=== PATIENT | female | born 1945 | race Caucasian/White ===

== ENCOUNTER → 2017-09-23 10:51 | Outpatient (CLI) | payer MEDICARE, SELFPAY ==
--- NOTE | 2017-09-23 | DI.RAD.S_ITS ---
PROCEDURE: XR CHEST 2V INDICATIONS: ACUTE BRONCHITIS, UNSPECIFIED TECHNIQUE: 2 views of the chest were acquired. COMPARISON: Merged With [facility], , CHEST 1 VIEW, 07/23/2015, 14:55. FINDINGS: Surgical changes and devices: Clips projecting in the right upper quadrant. Lungs and pleura: No pleural effusions or pneumothorax. Lungs are clear. Mediastinum: Mediastinal contours are normal. Heart size is normal. Bones and chest wall: No suspicious bony abnormalities. Soft tissues appear unremarkable. IMPRESSION: No acute disease. Dictated by: Fuentes Diaz M.D. on 09/23/2017 at 11:22 Approved by: Fuentes Diaz M.D. on 09/23/2017 at 11:23
== END ==
PROVIDERS: PCP Physician Assistant; Visit Provider Physician Assistant
DX: J20.9 Acute bronchitis, unspecified (principal)
CPT/HCPCS: 71046

== ENCOUNTER → 2018-05-10 14:52 | Outpatient (CLI) | payer MEDICARE, SELFPAY ==
--- NOTE | 2018-05-10 | DI.ECHO.S_ITS ---
[facility]---------+ [facility] +---------+ : : [address] : [place] : : : : [id number] : : : : Phone: [phone]+ Echocardiogram Report + + :Name: ADDI CISNEROS Study Date: 05/10/2018 Height: 65 in : :[facility] Weight: 250 lb : : Gender: Female BSA: 2.2 m2 : :: 1945 Age: 72 yrs BP: 158/68 mmHg: :Reason For Study: SOB : : Performed By: Yin Corrales : :Referring: MAREN ADLER : + + Interpretation Summary The ejection fraction is estimated to be 60-65%. There is mild aortic valve sclerosis. There is mild tricuspid regurgitation. The right ventricular systolic pressure is estimated to be at least 31 mmHg based on an estimated right atrial pressure of 3 mm Hg. Compared to the prior echo report on 2014, there is no significant change. Procedure: A two-dimensional transthoracic echocardiogram with color flow and Doppler was performed. The study quality was technically good. Comparison is made with the echocardiogram of 09-12-14. The patient was in normal sinus rhythm during the exam. Left Ventricle: The left ventricle is normal in size, wall thickness, and systolic function without any focal wall motion abnormalities. The ejection fraction is estimated to be 60-65%. Left ventricular wall motion is normal. Right Ventricle: The right ventricle grossly appears normal in size with probable normal systolic function. Atria: The left atrium is moderately dilated. Right atrial size is normal. The interatrial septum is intact with no evidence for an atrial septal defect. Mitral Valve: The mitral valve leaflets appear borderline thickened, but open well. There is no mitral regurgitation noted. Aortic Valve: The aortic valve is trileaflet. The aortic valve opens well. There is mild aortic valve sclerosis. No aortic regurgitation is present. Tricuspid Valve: The tricuspid valve leaflets are thin and pliable. There is mild tricuspid regurgitation. The right ventricular systolic pressure is estimated to be at least 31 mmHg based on an estimated right atrial pressure of 3 mm Hg. Pulmonic Valve: The pulmonic valve is normal in structure and function. There is no pulmonic valvular regurgitation. Great Vessels: The aortic root is normal size. The ascending aorta is at the upper limits of normal in size. The aortic arch is mildly enlarged. The IVC is of normal diameter and collapses greater than 50% with a sniff. This suggests a low right atrial pressure of 3 mm Hg. Pericardium/ Pleura There is no pericardial effusion. There is no pleural effusion. MMode/2D Measurements & Calculations LVIDd: 4.7 cm Ao root diam: 3.6 cm LVIDs: 3.1 cm Aortic Jxn: 2.7 cm FS: 35.1 % asc Aorta Diam: 3.5 cm EPSS: 0.80 cm Ao Arch Diam (Prox Trans): 3.4 cm IVSd: 0.93 cm LVPWd: 0.90 cm LV larson. diameter/BSA (cm/m^2): 2.2 LV sys. diameter/BSA (cm/m^2): 1.4 LA dimension: 4.3 cm RA long axis: 5.5 cm LA A2 area: 26.7 cm2 RA area: 21.6 cm2 LA A4 area: 28.0 cm2 RA vol: 72.9 ml LA length (vol): 6.4 cm RA : 33.5 ml/m2 LA vol: 99.0 ml IVC diam: 1.6 cm LA vol index: 45.5 ml/m2 RVDd major: 5.0 cm RVD1 (basal): 3.6 cm RVD2 (mid): 2.6 cm Doppler Measurements & Calculations Ao V2 max: 161.3 cm/sec MV E max jon: 123.5 cm/sec Ao V2 mean: 98.0 cm/sec MV A max jon: 133.2 cm/sec Ao max P.4 mmHg MV E/A: 0.93 Ao mean P.6 mmHg Med Peak E' Jon: 5.4 cm/sec Ao V2 VTI: 35.9 cm E/E' med: 23.0 Lat Peak E' Jon: 6.5 cm/sec E/E' lat: 18.9 E/e' average: 21.0 MV dec time: 0.21 sec MV P1/2t: 64.8 msec TR max jon: 264.0 cm/sec MV P1/2t max jon: 123.7 cm/sec TR max P.9 mmHg MVA(P1/2t): 3.4 cm2 PA V2 max: 94.5 cm/sec PA V2 mean: 62.3 cm/sec PA mean P.8 mmHg PA Accel Time: 0.13 sec Reading Physician:02:52 PM
== END ==
PROVIDERS: PCP Physician Assistant; Visit Provider Physician Assistant
DX: I08.2 Rheumatic disorders of both aortic and tricuspid valves (principal); R06.02 Shortness of breath; I10 Essential (primary) hypertension
CPT/HCPCS: 93306

== ENCOUNTER → 2019-12-27 16:13 | Outpatient (CLI) | payer MEDICARE, SELFPAY ==
--- NOTE | 2019-12-27 16:20 | DI.CT.S_ITS ---
PROCEDURE: CT HEAD/BRAIN WO CON INDICATIONS: ACUTE HEADACHE POST HEAD INJURY TECHNIQUE: Noncontrast 4.5 mm thick angled axial sections acquired from the foramen magnum to the vertex, with coronal and sagittal reformats. For radiation dose reduction, the following was used: automated exposure control, adjustment of mA and/or kV according to patient size. COMPARISON: [facility], CT, SINUS W/O CONTRAST, 04/29/2013, 8:20. FINDINGS: Image quality: Excellent. CSF spaces: Basal cisterns are patent. No extra-axial fluid collections. Ventricles are normal in size and shape. Small extra-axial intracranial lipomas noted along the falx (series 2 images 16, 17, 18, 20, 21). Brain: No midline shift. No intracranial masses or hemorrhage. Keyes-white matter interface is normal. Skull and face: Calvarium and visualized facial bones are intact, without suspicious lesions. Sinuses: Visualized sinuses and mastoids are clear. IMPRESSION: No acute intracranial process. Dictated by: Nayan Fajardo M.D. on 12/27/2019 at 16:42 Approved by: Nayan Fajardo M.D. on 12/27/2019 at 16:45
== END ==
PROVIDERS: PCP Physician Assistant; Referring Provider Physician Assistant; Visit Provider Physician Assistant
DX: G44.319 Acute post-traumatic headache, not intractable (principal)
CPT/HCPCS: 70450

== ENCOUNTER → 2020-01-09 14:43 | Outpatient (CLI) | payer MEDICARE, SELFPAY ==
[2020-01-11 08:19] LABS: COVID19 Sendout Not Detected (Not Detect)
== END ==
PROVIDERS: PCP Physician Assistant; Visit Provider Physician Assistant
DX: Z11.59 Encounter for screening for other viral diseases (principal)
CPT/HCPCS: 87635

== ENCOUNTER → 2020-01-12 08:52 | Outpatient (CLI) | payer MEDICARE, SELFPAY ==
--- NOTE | 2020-01-12 19:17 | DI.NM.S_ITS ---
DATE OF SERVICE: 01/12/2020 PROCEDURE PERFORMED: Exercise treadmill myocardial perfusion imaging study with gating to assess ejection fraction and regional wall motion. Performed as a one- day study. ORDERING PROVIDER: Latasha Parker M.D. INDICATIONS: The patient is a 74-year-old female with chest discomfort. EXERCISE TREADMILL TESTING: The patient was able to exercise for 5 minutes 30 seconds on a standard Jeronimo protocol suggesting average exercise capacity with an MIKALA of 0% on the active scale. She had a normal heart rate and blood pressure response, achieving a maximum heart rate of 148 BPM (101% of her predicted maximum). She had no chest discomfort or other anginal symptoms. Her resting ECG appears normal and there are no significant ST-segment shifts with exercise. She has occasional PVCs with exercise, rarely in couplets and triplets, but no other complex ventricular ectopy. At 4 minutes 30 seconds of exercise, at a heart rate of 135 BPM, 25.3 millicuries of technetium-99m Myoview was injected and the patient was imaged 20 minutes later using a gated SPECT acquisition protocol. Earlier in the day, while at rest, she was injected with 14.6 millicuries of technetium-99m Myoview and was imaged 30 minutes later, again using a gated SPECT acquisition protocol. FINDINGS: 1. Raw data: There is fair myocardial tracer uptake with mild breast shadows noted. Lung/heart ratio was normal at 0.38 with a normal TID ratio of 0.94. 2. Quantitated gated SPECT: Post-stress ejection fraction is estimated at 78% without any focal wall motion abnormality. Resting ejection fraction 71% with a normal end-diastolic volume of 101 mL. 3. Myocardial perfusion imaging: Post-stress supine images showed a completely normal perfusion pattern without any perfusion defects. The prone images show a similar perfusion pattern, although with a slight defect in the mid anterior wall consistent with a breast attenuation artifact. The resting images show a similar perfusion pattern to that of the post-stress supine images without any areas of improvement. IMPRESSION: 1. Normal myocardial perfusion study. 2. No evidence of myocardial ischemia or previous myocardial infarction. 3. Normal left ventricular systolic function without focal wall motion abnormality. 4. Average exercise capacity without angina or ECG evidence of ischemia. She had occasional PVCs, occasionally in couplets and triplets, but no other complex ventricular ectopy. 5. Compared to the previous myocardial perfusion study of 07/25/2015, a similar perfusion pattern is seen, although the previous fixed anterior defect that was attributed to breast attenuation artifact is now less prominent. The previous ejection fraction was estimated at 77% with an end-diastolic volume of 121 mL. Thus, there has been no significant change since the previous exam. Smiley Suggs - MACI/olivier/urmila doc#: [id number]/job#: [id number] dd: 01/12/2020 16:52:00 dt: 01/12/2020 17:38:00 DICTATING MD/COPIES TO: David Motta MD; Latasha Parker MD COPIES MNE: ORIANA;
== END ==
PROVIDERS: PCP Internal Medicine; Referring Provider Internal Medicine; Visit Provider Internal Medicine
DX: R07.89 Other chest pain (principal)
CPT/HCPCS: 78452; 93017; A9502

== ENCOUNTER → 2020-12-04 13:43 | Outpatient (CLI) | payer MEDICARE, SELFPAY ==
--- NOTE | 2020-12-04 13:48 | DIET.OUTPTC ---
Dietary Outpatient Consultation Note Consultation Date: 12/04/[address] 75[address] visit for help with managing diet for DM2 and kidney stones referred by urologist. Pt has had kidney stones twice and does Litholink tests regularly to identify factors increasing stone formation risk. Pts risk factors from test on 08/17/20 include high urine calcium, low urine citrate, low urine pH, and high risk for uric acid stone formation. Pt reports high stress in life right now, as a result, BGs higher, lots of fast food meals and intake Coke Zero. Pt has been out for pasta at [employer] several times over last few months which is not usual for her. During times when she is on program: Usual Day: B: 2 scrambled eggs c cream, parmesan, tarragon and avocado Uses MCT oil Premier Protein-mocha D: 4-5oz ground beef, ground venison, ground turkey, chicken c egg c steamed broccoli and cauliflower Sn: 4oz italian yogurt spaghetti squash instead of pasta Not big animal protein eater A1c: 7.5 (last checked 1y ago), FBGs ranging 180s currently, have been as low as 120s previously. Pt currently taking Jardiance. Nutrition Dx: 1. Nutrition related knowledge deficit r/t diet to reduce risk for kidney stones aeb pt has hx two kidney stones requiring lithotripsy, pts litholink shows high urine calcium, high risk uric acid stone formation, low urine citrate, low urine pH. 2. altered nutrition related laboratory values (BG, A1c) r/t undesirable food choices aeb pts FBG have risen from 120s to 180s, pt A1c a year ago was 7.5, pt increasing consumption fast food, pasta, pt reports considerable stress in life reducing compliance to CCD. Interventions: 1. To support lowering urine calcium, recc pt check c urologist to reduce 1,000 mg supplemental calcium to level that fills gap between TAPPER HAND and actual dietary intake. Most likely 500mg sufficient. 2. To increase urine pH and reduce risk of uric acid stones, recc pt reduce dinner meat portion to 2-3 ounces or skip a few times per week. Pt has been vegan in past and would prefer to eat less meat anyway, so this is easy fix for her. 3. To increase urine citrate, recc pt consume 2oz lemon or gambell juice daily mixed in water or as seasoning for foods. 4. To support adequate BG management, worked c pt to restart her usual diet which is low in carbs and makes her feel more energetic. Electronically Signed by: Tracy Agudelo 12/04/20 13:48 Clinical Dietitian [address] [id number]
== END ==
PROVIDERS: PCP Physician Assistant; Referring Provider Physician Assistant; Visit Provider Physician Assistant
DX: E11.9 Type 2 diabetes mellitus without complications (principal); Z87.442 Personal history of urinary calculi; Z71.3 Dietary counseling and surveillance
CPT/HCPCS: 97802

== ENCOUNTER → 2022-01-24 16:11 | Outpatient (CLI) | payer MEDICARE, SELFPAY ==
[2022-01-24 17:37] LABS: Hematocrit 43.9 % (36-46); Mean Corpuscular HGB Conc 34.2 % (30-36); Mean Corpuscular Hemoglobin 30.1 PG (26-34); Platelet Count 323 X10^3/uL (150-400); Red Blood Cell Count 4.99 X10^6/uL (4.0-5.2); White Blood Cell Count 8.4 X10^3/uL (4.5-11.0)
[2022-01-24 17:40] LABS: Hemoglobin A1C% w Est Avg Glu 7.5 % (4.0-6.0)
[2022-01-24 17:41] LABS: Creatinine Urine Random 59.9 mg/dL
[2022-01-24 17:46] LABS: Alanine Aminotransferase 17 IU/L (<35); Albumin 4.4 g/dL (3.5-5.0); Albumin Globulin Ratio 1.3 (1.0-2.8); Alkaline Phosphatase 82 U/L (38-126); Aspartate Aminotransferase 23 IU/L (14-36); BUN Creatinine Ratio 35.3 (6-22); Bilirubin Total 0.5 mg/dL (0.2-1.3); Blood Urea Nitrogen 24 mg/dL (7-17); Calcium 9.9 mg/dL (8.4-10.2); Carbon Dioxide 27 mmol/L (22-32); Chloride 103 mmol/L (98-107); Cholesterol 257 mg/dL (140-199); Estimated Glomerular Filt Rate > 60 mL/min (>60); Globulin 3.5 g/dL (1.7-4.1); Glucose 126 mg/dL (80-110); HDL Cholesterol 67 mg/dL (40-60); HEMOLYSIS < 15 (0-50); LDL Cholesterol Calculated 138 mg/dL (<100); Potassium 3.8 mmol/L (3.4-5.1); Sodium 139 mmol/L (137-145); Total Protein 7.9 g/dL (6.3-8.2); Triglycerides 261 mg/dL (35-150)
[2022-01-24 17:47] LABS: Microalbumi Creatinin Ratio Ur 26.7 ug/mg CR (<30); Microalbumin Urine Random 1.6 mg/dL (0-1.6)
[2022-01-24 18:11] LABS: TSH w/ Reflex to FT4 1.05 uIU/mL (0.47-4.68)
== END ==
PROVIDERS: PCP Internal Medicine; Referring Provider Internal Medicine; Visit Provider Internal Medicine
DX: E11.69 Type 2 diabetes mellitus with other specified complication (principal); E78.2 Mixed hyperlipidemia; E78.5 Hyperlipidemia, unspecified; I10 Essential (primary) hypertension
CPT/HCPCS: 36415; 80053; 80061; 82043; 82570; 83036; 84443; 85027

== ENCOUNTER → 2022-08-01 15:00 | Outpatient (CLI) | payer MEDICARE, SELFPAY ==
[2022-08-01 15:54] LABS: Hematocrit 44.7 % (36-46); Hemoglobin 15.2 g/dL (12.0-16.0); Mean Corpuscular Hemoglobin 30.1 PG (26-34); Mean Corpuscular Volume 88.6 fL (80-100); Platelet Count 351 X10^3/uL (150-400); Red Blood Cell Count 5.05 X10^6/uL (4.0-5.2); Red Cell Distribution Width 13.4 % (11.6-14.8); White Blood Cell Count 7.3 X10^3/uL (4.5-11.0)
[2022-08-01 16:13] LABS: Alanine Aminotransferase 18 IU/L (<35); Albumin 4.3 g/dL (3.5-5.0); Albumin Globulin Ratio 1.4 (1.0-2.8); Alkaline Phosphatase 93 U/L (38-126); Aspartate Aminotransferase 21 IU/L (14-36); BUN Creatinine Ratio 37.1 (6-22); Bilirubin Total 0.4 mg/dL (0.2-1.3); Blood Urea Nitrogen 26 mg/dL (7-17); Calcium 10.7 mg/dL (8.4-10.2); Carbon Dioxide 22 mmol/L (22-32); Chloride 102 mmol/L (98-107); Cholesterol 288 mg/dL (140-199); Estimated Glomerular Filt Rate > 60 mL/min (>60); Glucose 289 mg/dL (80-110); HDL Cholesterol 71 mg/dL (40-60); HEMOLYSIS < 15 (0-50); LDL Cholesterol Calculated 141 mg/dL (<100); Potassium 4.3 mmol/L (3.4-5.1); Sodium 135 mmol/L (137-145); Total Protein 7.3 g/dL (6.3-8.2); Triglycerides 382 mg/dL (35-150)
[2022-08-01 16:42] LABS: TSH w/ Reflex to FT4 1.71 uIU/mL (0.47-4.68)
[2022-08-02 06:02] LABS: x Labcorp Estim. Avg Glu (eAG) 174 mg/dL (.); x Labcorp Hemoglobin A1c 7.7 % (4.8-5.6)
== END ==
PROVIDERS: PCP Internal Medicine; Referring Provider Internal Medicine; Visit Provider Internal Medicine
DX: E11.69 Type 2 diabetes mellitus with other specified complication (principal); E78.2 Mixed hyperlipidemia; E78.5 Hyperlipidemia, unspecified; I10 Essential (primary) hypertension
CPT/HCPCS: 36415; 80053; 80061; 83036; 84443; 85027

== ENCOUNTER → 2022-08-21 12:34 | Outpatient (CLI) | payer MEDICARE, SELFPAY ==
--- NOTE | 2022-08-21 12:36 | DI.RAD.S_ITS ---
PROCEDURE: XR KUB INDICATIONS: possible kidney stones TECHNIQUE: One view of the abdomen acquired. COMPARISON: None. FINDINGS: Surgical changes and devices: None. Bowel: Bowel gas pattern is normal. Soft tissues: No suspicious abdominal calcifications. Visualized solid organ contours appear normal in size. Surgical clips noted in the right upper quadrant Bones: No suspicious bony lesions. Degenerative changes noted lower lumbar spine IMPRESSION: No radiographic evidence of renal calculi Approved by: Jordy Shepherd M.D. on 08/21/2022 at 16:49
[2022-08-21 13:54] LABS: Appearance Urine UA CLEAR; Bilirubin Urine UA NEGATIVE (NEGATIVE); Color Urine UA YELLOW; Glucose Urine UA 3+ g/dL (Negative); Ketones Urine UA 1+ (NEGATIVE); Leukocyte Esterase Urine UA NEGATIVE (NEGATIVE); Nitrite Urine UA NEGATIVE (Negative); Occult Blood Urine UA NEGATIVE (Negative); Protein Urine UA NEGATIVE (Negative); Specific Gravity Urine UA 1.015 (1.000-1.035); Urobilinogen Urine UA 0.2 E.U./dL (0.2)
[2022-08-21 14:02] LABS: pH Urine UA 5.5 (4.5-8.0)
[2022-08-21 14:03] LABS: RBC Urine None Seen (0-5/HPF); WBC Urine 5-10/HPF (0-5/HPF)
[2022-08-21 14:04] LABS: Bacteria Urine None Seen; Culture Indicated Urine Specimen Cultured; Squamous Epithelial Cell Urine 1-5 /HPF (0-5/HPF)
== END ==
PROVIDERS: PCP Internal Medicine; Referring Provider Specialist; Visit Provider Specialist
DX: E11.69 Type 2 diabetes mellitus with other specified complication (principal); E78.5 Hyperlipidemia, unspecified; E78.2 Mixed hyperlipidemia
CPT/HCPCS: 74018; 81001; 87086

== ENCOUNTER 2022-10-28 08:47 | Day surgery (SDC) | payer MEDICARE, SELFPAY ==
[2022-10-28 09:21] VITALS: BMI 37.8
[2022-10-28] MEDS: LACTATED RINGERS 1,000 ML 200 ML IV (09:30)
[2022-10-28 09:57] VITALS: BP 137/76; PULSE 59; RESP 18; TEMP 36.1; O2SAT 95
--- NOTE | 2022-10-28 10:07 | PM.HP.1 ---
History of Present Illness History of Present Illness Date Patient Seen: 10/28/22 Chief complaint: Dx Colonoscopy w/poss bx Narrative: 76-year-old woman with a history of colonic polyps here for colonoscopy. Recent episode of acute uncomplicated diverticulitis. Last colonoscopy 3 years ago. No family history of intestinal malignancy. 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 Essential hypertension Family history of nephrolithiasis Generalized anxiety disorder Glaucoma History of colonic polyps History of COVID-19 Measles Mixed hyperlipidemia Mumps Obesity (BMI 35.0-39.9 without comorbidity) Plantar warts Primary osteoarthritis involving multiple joints PTSD (post-traumatic stress disorder) Slow transit constipation Tinnitus Surgical History Anesthesia History of cholecystectomy History of hysterectomy History of total knee replacement Social History household members: none Smoking Status: Former smoker alcohol intake: current Meds Home Medications and Allergies Home Medications Medication Instructions Recorded Confirmed Type ascorbic acid (vitamin C) 1 tab PO BID 01/24/22 10/28/22 History [Chewable Vitamin C] cranberry fruit 250 mg-vitamin C 4 tab PO DAILY 01/24/22 10/28/22 History 30 [id number]-[id number] 50 mg chewable tablet empagliflozin 25 mg tablet 25 mg PO DAILY 01/24/22 10/28/22 History lancets 30 gauge (Simplic[employer] Software[employer] Nidia #100 ea 01/24/22 08/01/22 History Plus Lancet) latanoprost 0.005 % eye drops 1 drp EYE-BOTH QPM 01/24/22 10/28/22 History diltiazem HCl 180 mg 180 mg PO DAILY #90 caps 03/05/22 10/28/22 Rx capsule,extended release 24 hr, controlled metformin 500 mg tablet,extended 500 mg PO DAILY #90 tabs 05/05/22 10/28/22 Rx release 24 hr blood sugar diagnostic (Simplicita SoftwareTouch #200 ea 06/30/22 08/01/22 Rx Ultra Test strips) sertraline 50 mg tablet 50 mg PO DAILY #90 tabs 08/01/22 10/28/22 Rx alprazolam 1 mg tablet 0.5 mg PO TID PRN anxiety #45 tabs 08/29/22 10/28/22 Rx Allergies Allergy/AdvReac Type Severity Reaction Status Date / Time mirtazapine AdvReac Severe excessive Verified 10/28/22 09:14 diarrhea dulaglutide [From Trulicity] AdvReac Intermediate Abdominal Verified 10/28/22 09:14 Pain ezetimibe AdvReac Mild muscle Verified 10/28/22 09:14 cramps Exam Vital Signs (past 8 hours): - 10/28/22 09:57 Temperature 97 F L Pulse Rate 59 L Respiratory Rate 18 Blood Pressure 137/76 Pulse Oximetry 95 Oxygen Delivery Method Room Air Oxygen Delivery Method Room Air Narrative Exam Narrative: General adult woman alert oriented no acute distress Abdomen soft nontender nondistended Assessment & Plan Assessment and plan (1) Acute diverticulitis: Status: Acute Assessment & Plan narrative: 76-year-old woman with recent history of diverticulitis and colonic polyps here for colonoscopy . Risks, benefits, alternatives explained. Risks including but not limited to myocardial infarction, aspiration, bleeding, pain, missed lesion, incomplete examination, need for further radiographic studies, colonic perforation, and need for major abdominal surgery were discussed. All questions were answered to their satisfaction, and they are in agreement with this plan.
--- NOTE | 2022-10-28 10:40 | P.OP.COLON_ITS ---
Operative Date/Time/Diagnoses Date of procedure: 10/28/22 Time of procedure: 10:40 Pre-op diagnosis: Diverticulitis Post-op diagnosis: same Procedure & Clinicians Study performed: Colonoscopy Same procedure as scheduled: Yes Indications: 76-year-old woman recent episode acute uncomplicated diverticulitis here for colonoscopy Surgeon: Yunior Ruffin Procedure Notes Procedure in detail: The history and physical was performed/updated and the patient is ASA class is 2. The procedure was discussed in detail with the patient. Potential risks complications including infection, bleeding, missed diagnosis, perforation, need for surgery, and were explained. Their questions were answered and informed consent was obtained. Patient was brought to the procedure room and placed standard monitoring equipment. The patient's vital signs were monitored continuously throughout the entire procedure. Prior to starting time-out was performed. The patient was placed in the left lateral recumbent position. Procedural sedation was administ ered by anesthesia. Examination began with a thorough inspection of the perianal area there was no evidence of fissures, fistulae, external hemorrhoids or cutaneous malignancy. The colonoscopy scope was then placed into the anal canal and was advanced to the cecum, which was identified by the ileocecal valve, the appendiceal orifice and the confluence of the taenia. The scope was then slowly withdrawn examining colon thoroughly in all directions, irrigating it of any residual stool. No masses or polyps. Extensive sigmoid diverticulosis The patient tolerated the procedure well. They will be discharged once criteria are met. The prep was of good/excellent quality. The withdrawl time was 6 minutes. Specimen(s): none sent Impression: Diverticulosis Post-procedure Recommendations: High fiber diet Plan for aftercare: No need for further colonoscopy unless symptomatic Disposition: same day surgery
[2022-10-28 10:47] VITALS: BP 93/40; PULSE 62; RESP 14; TEMP 36.2; O2SAT 92
== END 2022-10-28 11:07 | disposition home or self-care (01) ==
PROVIDERS: PCP Internal Medicine; Referring Provider Surgery; Visit Provider Surgery
PROC: 0DJD8ZZ Inspection of Lower Intestinal Tract, Via Natural or Artificial Opening Endoscopic (ICD-10-PCS; CPT 45378; principal; 2022-10-28 10:00)
DX: K57.30 Diverticulosis of large intestine without perforation or abscess without bleeding (principal); Z86.010 Personal history of colon polyps
CPT/HCPCS: 45378; J2704; J3010

== ENCOUNTER → 2023-03-16 15:03 | Outpatient (CLI) | payer MEDICARE, SELFPAY ==
[2023-03-16 17:13] LABS: Hemoglobin A1C% w Est Avg Glu 7.1 % (4.0-6.0)
[2023-03-16 17:38] LABS: BUN Creatinine Ratio 46.7 (6-22); Blood Urea Nitrogen 28 mg/dL (7-17); Calcium 10.3 mg/dL (8.4-10.2); Carbon Dioxide 24 mmol/L (22-32); Chloride 102 mmol/L (98-107); Estimated Glomerular Filt Rate > 60 mL/min (>60); Glucose 127 mg/dL (80-110); HEMOLYSIS 19 (0-50); Potassium 3.8 mmol/L (3.4-5.1); Sodium 136 mmol/L (137-145)
[2023-03-17 20:04] LABS: Creatinine Urine Random 69.3 mg/dL; Microalbumi Creatinin Ratio Ur 14.4 ug/mg CR (<30)
== END ==
LOC: LAB 15:05
PROVIDERS: PCP Internal Medicine; Referring Provider Internal Medicine; Visit Provider Internal Medicine
DX: E11.69 Type 2 diabetes mellitus with other specified complication (principal); E78.5 Hyperlipidemia, unspecified; I10 Essential (primary) hypertension
CPT/HCPCS: 36415; 80048; 82043; 82570; 83036